=== PATIENT | female | born 2000 | race African-American/Black ===

== ENCOUNTER 2024-10-03 10:30 | Inpatient (IN) | payer BC ==
[2024-10-03 11:26] VITALS: BMI 39.6
[2024-10-03] MEDS ORDERED: PENICILLIN G POTASSIUM 5,000,000 UNIT/250 ML BAG IVPB ONE (12:19)
[2024-10-03] MEDS: BETAMET ACET/BETAMET NA PH 30 MG/5 ML VIAL IM ONE (12:25)
[2024-10-03 12:46] LABS: BASO % 0.3 % (0-2.0); EOS % 0.4 % (0-4.5); HEMATOCRIT 34.6 % (32.4-45.2); HEMOGLOBIN 11.1 GM/dL (10.7-15.3); LYMPH % 22.3 % (8-40); MCH 27.3 pg (25.7-33.7); MEAN CELL VOLUME 85.3 fl (80-96); MEAN PLT VOLUME 8.1 fl (7.5-11.1); MONO % 11.4 % (3.8-10.2); NEUT % 65.6 % (42.8-82.8); PLATELET COUNT 280 10^3/uL (134-434); RBC 4.06 M/mm3 (3.60-5.2); RDW 14.8 % (11.6-15.6); WHITE BLOOD COUNT 8.7 K/mm3 (4.0-10.0)
[2024-10-03 12:50] LABS: INR 0.94 (0.83-1.09); PROTHROMBIN TIME (PATIENT) 10.8 SEC (9.7-13.0)
[2024-10-03 12:52] LABS: ACTIVATED PTT 28.3 SECONDS (25.2-36.5)
[2024-10-03] MEDS: DEXTROSE 5%-LACTATED RINGERS 1,000 ML IV SCH (13:15)
[2024-10-03 13:35] LABS: POTASSIUM 4.3 mmol/L (3.5-5.1)
[2024-10-03 13:36] LABS: CALCIUM 9.1 mg/dL (8.5-10.1)
[2024-10-03 13:37] LABS: BLOOD UREA NITROGEN 6.5 mg/dL (7-18)
[2024-10-03 13:40] LABS: CREATININE 0.7 mg/dL (0.55-1.3)
[2024-10-03] MEDS: PENICILLIN G POTASSIUM 5,000,000 PRE-DOCK IN NS 250 ML IVPB ONE (14:00)
[2024-10-03] MEDS: diphenhydrAMINE HCL 25 MG CAPSULE (FP) PO PRN (23:17)
[2024-10-04] MEDS: ACETAMINOPHEN 1000 MG/100 ML BAG IVPB ONE (00:35)
[2024-10-04] MEDS: SODIUM CHLORIDE 1,000 ML IV STA (01:50)
[2024-10-04] MEDS ORDERED: FENTANYL/BUPIVACAINE/NS/PF - PCEA - 50 ML DISP.SYRIN EP ONE ×6 (01:51→22:10)
[2024-10-04] MEDS: FENTANYL/BUPIVACAINE/NS/PF - PCEA - 50 ML DISP.SYRIN EP SCH (02:20)
[2024-10-04] MEDS ORDERED: NALOXONE HCL 0.4 MG/ML VIAL IVPUSH PRN (02:34)
[2024-10-04] MEDS: OXYTOCIN 30 UNITS in 0.9% NS 30 UNIT/500 ML INFUS.BAG IVPB SCH (03:53)
[2024-10-04] MEDS: SODIUM CHLORIDE 500 ML IV STA (19:04)
[2024-10-04] MEDS ORDERED: OXYTOCIN 20 UNITS in 0.9% NS 20 UNIT/1,000 ML INFUS.BAG IV ONE (22:24)
[2024-10-05] MEDS: OXYTOCIN 20 UNITS in 0.9% NS 20 UNIT/1,000 ML INFUS.BAG IV SCH (00:30)
[2024-10-05] MEDS ORDERED: WITCH HAZEL 50% (TUCKS) 40 PAD/JAR PAD TP PRN (01:22)
[2024-10-05] MEDS ORDERED: BENZOCAINE 28 GM HEMORRHOIDAL OINTMENT TP PRN (01:22)
[2024-10-05] MEDS ORDERED: ACETAMINOPHEN 325 MG TABLET (FP) PO PRN (01:22)
[2024-10-05] MEDS: IBUPROFEN 600 MG TABLET (FP) PO PRN (01:25)
[2024-10-05 01:28] LABS: CORD BASE EXCESS -8.9 mmol/L (0-2); CORD HCO3 19.3 mmHg (20-29); CORD PCO2 49.6 mmHg (30-78); CORD pH 7.209 (7.14-7.44)
[2024-10-05] MEDS ORDERED: DIPHTH,PERTUSS(ACELL),TET 0.5 ML DISP.SYRIN IM ONE (10:00)
[2024-10-06 07:31] LABS: HEMATOCRIT 27.1 % (32.4-45.2); HEMOGLOBIN 8.5 GM/dL (10.7-15.3); MCHC 31.2 g/dl (32.0-36.0); MEAN CELL VOLUME 86.4 fl (80-96); MEAN PLT VOLUME 8.4 fl (7.5-11.1); PLATELET COUNT 231 10^3/uL (134-434); RBC 3.14 M/mm3 (3.60-5.2); RDW 14.9 % (11.6-15.6); WHITE BLOOD COUNT 15.2 K/mm3 (4.0-10.0)
[2024-10-06 08:40] LABS: ANISOCYTOSIS 1+; MACROCYTOSIS 0; TEAR DROP CELLS 1+
[2024-10-06] MEDS ORDERED: DIPHTH,PERTUSS(ACELL),TET 0.5 ML DISP.SYRIN IM ONE (10:00)
[2024-10-06] MEDS: DOCUSATE SODIUM 100 MG CAPSULE (FP) PO SCH (13:35)
[2024-10-06] MEDS: FERROUS SO4 325 MG TABLET (FP) PO SCH (13:35)
[2024-10-06] MEDS: DIPHTH,PERTUSS(ACELL),TET 0.5 ML DISP.SYRIN IM ONE (13:37)
[2024-10-07 02:00] VITALS: RESP 18
[2024-10-07 09:33] VITALS: BP 124/68; PULSE 83; TEMP 99.1
== END 2024-10-07 12:05 | disposition home or self-care (01) | DRG 807 ==
LOC: JLDR 10:30 → J3W 10-05 03:33
PROVIDERS: ADMIT Obstetrics & Gynecology Maternal & Fetal Medicine; ATTEND Obstetrics & Gynecology Maternal & Fetal Medicine
PROC: 10D07Z6 Extraction of Products of Conception, Vacuum, Via Natural or Artificial Opening (ICD-10-PCS; principal; 2024-10-05)
PROC: 0HQ9XZZ Repair Perineum Skin, External Approach (ICD-10-PCS; 2024-10-05)
DX: O42.913 Preterm premature rupture of membranes, unspecified as to length of time between rupture and onset of labor, third trimester (principal); Z37.0 Single live birth; O76 Abnormality in fetal heart rate and rhythm complicating labor and delivery; O70.0 First degree perineal laceration during delivery; Z3A.36 36 weeks gestation of pregnancy
CPT/HCPCS: 36415; 36600; 59409; 80048; 82803; 85025; 85610; 85730; 86780; 86850; 86900; 86901; 87070; 87205; 88307-TC; 90715; 96372; J0131

== ENCOUNTER 2024-10-17 06:31 | Emergency (ER) | payer BC ==
[2024-10-17 06:47] VITALS: RESP 18; BMI 35.9
[2024-10-17 08:06] LABS: EPI CELLS 9 /uL (0-25.1); HYALINE CASTS 0 /uL (0-3.1); PH,URINE 5.5 (5.0-8.0); URINE APPEARANCE CLOUDY; URINE BACTERIA 205 /uL (0-1359); URINE BILIRUBIN NEGATIVE (NEGATIVE); URINE COLOR YELLOW; URINE GLUCOSE (UA) NEGATIVE (NEGATIVE); URINE KETONE TRACE (NEGATIVE); URINE LEUK ESTERASE 3+ (NEGATIVE); URINE NITRITE NEGATIVE (NEGATIVE); URINE PROTEIN 1+ (NEGATIVE); URINE RBC 1593 /uL (0-23.9); URINE UROBILINOGEN 0.2 mg/dL (0.2-1.0); URINE WBC 2036 /uL (0-25.8)
[2024-10-17 08:09] LABS: INR 1.01 (0.83-1.09); PROTHROMBIN TIME (PATIENT) 11.6 SEC (9.7-13.0)
[2024-10-17 08:12] LABS: ACTIVATED PTT 32.5 SECONDS (25.2-36.5)
[2024-10-17 08:18] LABS: BASO % 0.3 % (0-2.0); EOS % 1.3 % (0-4.5); HEMATOCRIT 37.3 % (32.4-45.2); HEMOGLOBIN 11.5 GM/dL (10.7-15.3); LYMPH % 17.2 % (8-40); MCH 26.6 pg (25.7-33.7); MCHC 30.8 g/dl (32.0-36.0); MEAN CELL VOLUME 86.2 fl (80-96); MEAN PLT VOLUME 7.7 fl (7.5-11.1); MONO % 4.9 % (3.8-10.2); NEUT % 76.3 % (42.8-82.8); PLATELET COUNT 415 10^3/uL (134-434); RBC 4.32 M/mm3 (3.60-5.2); RDW 14.9 % (11.6-15.6); WHITE BLOOD COUNT 12.2 K/mm3 (4.0-10.0)
[2024-10-17 08:19] LABS: POTASSIUM 4.5 mmol/L (3.5-5.1)
[2024-10-17 08:22] LABS: ALBUMIN 3.3 g/dl (3.4-5.0); BLOOD UREA NITROGEN 10.2 mg/dL (7-18); CALCIUM 9.1 mg/dL (8.5-10.1); MAGNESIUM 1.9 mg/dL (1.8-2.4)
[2024-10-17 08:26] LABS: BILIRUBIN,TOTAL 0.5 mg/dL (0.2-1)
[2024-10-17 08:27] LABS: TOT PROT 7.3 g/dl (6.4-8.2)
[2024-10-17] MEDS ORDERED: ACETAMINOPHEN INJECTION 100 ML ONE (08:49)
[2024-10-17] MEDS ORDERED: KETOROLAC TROMETHAMINE 15 MG/ML VIAL ONE (08:49)
[2024-10-17] MEDS ORDERED: ONDANSETRON 4 MG/2 ML VIAL ONE (08:50)
[2024-10-17] MEDS ORDERED: FAMOTIDINE 20 MG/50 ML IVPB 20 MG/50 ML MG IVPB ONE (08:50)
[2024-10-17] MEDS: ACETAMINOPHEN 1000 MG/100 ML BAG IVPB ONE (09:00)
[2024-10-17] MEDS: FAMOTIDINE 20 MG/50 ML IVPB 20 MG/50 ML MG IVPB ONE (09:16)
[2024-10-17] MEDS: KETOROLAC TROMETHAMINE 15 MG/ML VIAL IVPUSH ONE (09:16)
[2024-10-17] MEDS: LACTATED RINGERS SOLUTION 1000 ML INFUS.BAG IV ONE (09:16)
[2024-10-17] MEDS: ONDANSETRON 4 MG/2 ML VIAL IVPUSH ONE (09:17)
[2024-10-17 09:32] LABS: PHOSPHOROUS 4.2 mg/dL (2.5-4.9)
[2024-10-17] MEDS ORDERED: CEFTRIAXONE 1 G/50 ML PREMIX 50 ML IVPB ONE (10:21)
[2024-10-17] MEDS: PIPERACILLIN/TAZOB 4.5 GM 4.5 GM in DEXTROSE 5%-WATER 100 ML IVPB ONE (13:18)
[2024-10-17 16:16] VITALS: BP 142/72; PULSE 69; TEMP 99
== END 2024-10-17 15:33 | disposition home or self-care (01) ==
LOC: JER 06:31
PROC: 3E033GC Introduction of Other Therapeutic Substance into Peripheral Vein, Percutaneous Approach (ICD-10-PCS; principal; 2024-10-17)
PROC: 3E033NZ Introduction of Analgesics, Hypnotics, Sedatives into Peripheral Vein, Percutaneous Approach (ICD-10-PCS; 2024-10-17)
PROC: 3E03329 Introduction of Other Anti-infective into Peripheral Vein, Percutaneous Approach (ICD-10-PCS; 2024-10-17)
PROC: 3E0333Z Introduction of Anti-inflammatory into Peripheral Vein, Percutaneous Approach (ICD-10-PCS; 2024-10-17)
PROC: 3E033GC Introduction of Other Therapeutic Substance into Peripheral Vein, Percutaneous Approach (ICD-10-PCS; 2024-10-17)
DX: O86.20 Urinary tract infection following delivery, unspecified (principal); O99.893 Other specified diseases and conditions complicating puerperium; R10.11 Right upper quadrant pain; R10.31 Right lower quadrant pain; R10.32 Left lower quadrant pain; R30.0 Dysuria
CPT/HCPCS: 36415; 74177-TC; 76705-TC; 76830-TC; 80053; 81003; 83690; 83735; 83970; 84100; 84439; 84443; 84702; 85025; 85610; 85730; 87086; 87186; 93005; 93010; 99285-25; J0131; Q9967